=== PATIENT | female | born 1960 | race Caucasian/White ===

== ENCOUNTER 2020-10-12 15:52 | Outpatient (CLI) | payer SELFPAY ==
--- NOTE | 2020-10-12 15:59 | XR_ITS ---
WS: [id number] SCREENING DEXA SCAN [employer] CLINICAL INFORMATION: OSTEOPENIA COMPARISON: None. FINDINGS: The L1-L4 bone mineral density measures 0.991 g/cm2. This corresponds to a T score score of -1.6 and Z score of -0.3. Left femoral neck bone mineral density measures 0.921 g/cm2. This corresponds to a T score of -0.7 an d Z score of 0.3. Right femoral neck bone mineral density measures 0.962 g/cm2. This corresponds to a T score -0.4of an d Z score of 0.6. Mean femoral neck bone mineral density measures 0.941 g/cm2. This corresponds to a T score of -0.5 an d Z score of 0.4. XR/XR DEXA axial skeleton* [id number] IMPRESSION: Osteopenia Patient's FRAX calculated 10 year probability for major osteoporotic fracture i s 7.6 % and osteoporotic hip fracture is 0.6%.
== END 2020-10-12 15:53 | disposition home or self-care (01) ==
LOC: RADWPI 15:59
PROVIDERS: PCP Family Medicine; Visit Provider Obstetrics & Gynecology
DX: M85.80 Other specified disorders of bone density and structure, unspecified site (principal)
CPT/HCPCS: 77080